=== PATIENT | female | born 1995 | race Caucasian/White ===

== ENCOUNTER 2018-11-11 18:11 | Emergency (ER) | payer OTHER ==
[2018-11-11] MEDS: ACETAMINOPHEN 500 MG TAB PO (22:53)
== END 2018-11-11 23:39 | disposition home or self-care (01) ==
LOC: FTE 18:11
DX: T25.211A Burn of second degree of right ankle, initial encounter (principal); T25.112A Burn of first degree of left ankle, initial encounter; X10.0XXA Contact with hot drinks, initial encounter; Y92.9 Unspecified place or not applicable
CPT/HCPCS: 16000; 99282-25